=== PATIENT | female | born 1950 | race Caucasian/White ===

== ENCOUNTER 2018-08-01 12:11 | Outpatient (CLI) | payer OTHER, BC | END 2018-08-01 12:12 | disposition home or self-care (01) | LOC: BICMAMMO 12:11 | PROVIDERS: ATTEND Obstetrics & Gynecology | DX: Z12.31 Encounter for screening mammogram for malignant neoplasm of breast (principal) | CPT/HCPCS: 77063; 77067 ==

== ENCOUNTER 2018-10-31 10:48 | Outpatient (CLI) | payer OTHER, BC ==
--- NOTE | 2018-10-31 13:37 | BD ---
DEXA BONE DENSITY STUDY: HISTORY: Postmenopausal. LUMBAR SPINE BMD (g/cm2) T-SCORE L1 0.714 -2.5 L2 0.706 -2.9 L3 0.784 -2.7 L4 0.736 -3.0 TOTAL 0.736 -2.8 LEFT FEMORAL NECK 0.648 -1.8 TOTAL 0.790 -1.2 IMPRESSION: 1. Osteopenia of the left hip and osteoporosis of the lumbar spine. 2. The T-score values are similar to the previous 11/30/2014 examination. POS: [facility]
== END 2018-10-31 10:49 | disposition home or self-care (01) ==
LOC: BICMAMMO 10:48
PROVIDERS: ATTEND Obstetrics & Gynecology
DX: Z13.820 Encounter for screening for osteoporosis (principal); M85.852 Other specified disorders of bone density and structure, left thigh; M81.0 Age-related osteoporosis without current pathological fracture
CPT/HCPCS: 77080